=== PATIENT | male | born 1960 | race Caucasian/White ===

== ENCOUNTER 2024-02-25 11:19 | Emergency (ER) | payer MEDICARE, SELFPAY ==
[2024-02-25 11:20] VITALS: BP 180/101; PULSE 66; RESP 20; TEMP 36.6; O2SAT 96; BMI 24.4
--- NOTE | 2024-02-25 11:52 | W.ED.ABDPA2 ---
HPI - Abdominal Pain General: Chief Complaint: Abdominal Pain Stated Complaint: abd pain Time Seen by Provider: 02/25/24 11:47 Source: patient Mode of arrival: ambulatory Limitations: no limitations History of Present Illness: Patient is a nice 63-year-old male presents to ED today for evaluation of a hernia. Patient states he has had the hernia for a long time now (several years). He states normally it does not bother him much but feels like he over time has started noticing coughing and kneeling to pray causes him some discomfort. He states hernia is always reproducible. He states he has normal bowel movements and passes flatulence normally. He has not noticed any change to this. He is not running fevers. No nausea or vomiting. MD elicited complaint: other (hernia) Pertinent past history: none Onset (ago): year(s) Location: LLQ (inguinal region) and Groin Radiation: none Migration to: no migration Exacerbating factors: other (coughing/straining) Relieving factors: nothing Associated Symptoms: Reports no associated symptoms; Denies diarrhea, dysuria, fever(s), nausea and vomiting Review of Systems Const: Denies: fever(s) Card: Denies: chest pain Resp: Denies: dyspnea GI: Denies: abdominal pain, nausea, vomiting or diarrhea : Denies: flank pain, difficulty urinating, dysuria, urinary frequency, urinary urgency or urinary hesitancy Skin/Breast: Denies: rash or erythema Physical Exam Const: COMMON NORMALS: no acute distress, average body habitus, patient oriented x3, no limitations, healthy appearing, alert and well nourished OTHER: Hypertensive upon arrival. Systolic charted 180. During my examination blood pressure is already down to 150s systolic. Resp: COMMON NORMALS: normal respiratory effort and clear to auscultation bilaterally AUSCULTATION: clear to auscultation bilaterally Cardio: COMMON NORMALS: regular rate and regular rhythm RATE: regular rate RHYTHM: regular rhythm GI: COMMON NORMALS: Normal to inspection, nondistended, normoactive bowel sounds present, Soft to palpation and No hepatosplenomegaly present INSPECTION: Yes normal to inspection AUSCULTATION: Yes normoactive bowel sounds PALPATION: Yes Soft to palpation, No Guarding due to palpation present (GI), No Rigid due to palpation and Yes No hepatosplenomegaly present OTHER: L inguinal hernia present only with Valsalva-this is easily reducible Neuro: COMMON NORMALS: patient oriented x3 SENSORIUM/ORIENTATION: Yes alert Course Vital Signs: Vital signs: Vital Signs Temperature 97.8 F 02/25/24 11:20 Pulse Rate 66 02/25/24 11:20 Respiratory Rate 20 H 02/25/24 11:20 Blood Pressure 180/101 02/25/24 11:20 Pulse Oximetry 96 02/25/24 11:20 Oxygen Delivery Me thod Room Air 02/25/24 11:20 MDM - Abdominal Pain Medical Decision Making Patient here with a chronic left inguinal hernia. It is only present with Valsalva and easily reducible here. He is not complaining of pain. He is having normal bowel movements. Nothing to suggest obstruction, incarceration, or strangulation. He will be provided general surgery referral for discussion regarding elective repair. Return ED precautions given. Differential Diagnosis Likely abdominal pain and small bowel obstruction Medical Records I reviewed the patient's medical records. No radiology studies performed this visit Discharge Plan Discharge Patient Disposition: Home Clinical Impression: Left inguinal hernia Condition: Stable Discharge Orders: Discharge ED (Routine); Ordered 02/25/24 Ordered By: Sandra Swann Patient Instructions: Inguinal Hernia (ED) Activity Restrictions/Additional Instructions: As we discussed we need to see you back in the emergency department if your hernia gets stuck and is not able to be reduced or if you begin having severe constant pain, trouble having a bowel movement or passing gas, fevers, redness to the skin of your abdomen overlying the hernia site, or any other concerns you may have. Otherwise I would like you to follow-up with general surgery for discussion about an elective hernia repair. Case management should reach out to you this week to help set you up with this follow-up appointment. Stand Alone Forms: Work/School Release Coding Level of Care Code ED Associate Account Director for Andrew Loomis
[2024-02-25 12:16] VITALS: PULSE 59; O2SAT 96
--- NOTE | 2024-02-27 07:26 | DCPLANNER ---
messaged gen surg for er f/u
== END 2024-02-25 12:18 | disposition home or self-care (01) ==
PROVIDERS: Emergency Provider Physician Assistant
DX: K40.90 Unilateral inguinal hernia, without obstruction or gangrene, not specified as recurrent (principal)
CPT/HCPCS: 99281

== ENCOUNTER → 2024-03-13 10:41 | Outpatient (BNVA) | payer MEDICARE, SELFPAY | PROVIDERS: Referring Provider Physician Assistant; Visit Provider Surgery | DX: K40.90 Unilateral inguinal hernia, without obstruction or gangrene, not specified as recurrent (principal) | CPT/HCPCS: 99204 ==

== ENCOUNTER 2024-03-23 08:06 | Day surgery (SDC) | payer MEDICARE, SELFPAY ==
[2024-03-23] VITALS (11 sets, daily range): BP systolic 156–190; BP diastolic 47–112; PULSE 59–89; RESP 15–23; TEMP 36.4–36.7; O2SAT 90–96; BMI 24.8
--- NOTE | 2024-03-23 09:04 | P.ANESASSM_ITS ---
Pre-Anesthetic Assessment Height/Weight: Height 1.8 m Weight 80.931 kg O2 Del Method Room Air 03/23/24 08:57 Operation Date: 03/23/24 10:05 Proposed Procedures p Laparoscopic Inguinal Hernia Repair w/Mesh - POSSIBLE OPEN L 60139, K40.90(Not Applicable) - Gio Alex MD Last intake: Intake Last Liquid Date 03/22/24 Last Liquid Time 23:55 Last Solid Date 03/22/24 Last Solid Time 23:55 Social No alcohol and No tobacco Exam alert, oriented x 3, clear to auscultation bilaterally and regular rate & rhythm Airway Submandibular: within normal limits Cervical ROM: within normal limits Mallampati: Class I Pulmonary None reported CV/HEM Hypertension Hepatic None reported GI None reported Metabolic None reported Musc/skel None reported Anesthetic Plan ASA status: 2 Anesthesia: General Medications/Allergies Home Medications Medication Instructions Recorded Confirmed Last Taken Type No Known Home Medications 03/13/24 03/20/24 Unknown History Allergies Allergy/AdvReac Type Severity Reaction Status Date / Time diphenhydramine Allergy ADR-Agitate Verified 03/13/24 10:42 [From Benadryl Allergy] d PENDING SALE TO [facility] Anesthesia Social History (Updated 03/20/24 @ 10:33 by Rosemary Brito RN) Smoking and tobacco/nicotine status: former use of tobacco/nicotine Substance/Drug Use: current Substance/Drug use frequency: daily Substance/Drug use type: Marijuana Data Anesthesia Cardiac Studies: No Data to Display
[2024-03-23] MEDS: sodium chloride 0.9% 1,000 ML 30 ML IV (09:24)
--- NOTE | 2024-03-23 10:00 | P.HPUD_ITS ---
Surgery/Procedure H&P Update DATE OF PROCEDURE: March 23, 2024 DATE H&P PERFORMED: 03/13/24 H&P UPDATE INFORMATION: I have reviewed H&P completed within last 30 days, I have examined patient prior to procedure, No changes to prior documentation and [place] [facility] [place] indicated PLANNED PROCEDURE: Operation Date: 03/23/24 10:05 Proposed Procedures p Laparoscopic Inguinal Hernia Repair w/Mesh - POSSIBLE OPEN L 95888, K40.90(Not Applicable) - Gio Alex MD
[2024-03-23] MEDS: ceFAZolin 2,000 mg SDV 2000 MG IVP (10:55)
[2024-03-23] MEDS: BUPivacaine 0.25% INJ 30 mL INJECTION (11:09)
[2024-03-23] MEDS: lidocaine-epi 1% PF 1:200,000 30 mL SDV INJECTION (11:09)
--- NOTE | 2024-03-23 12:06 | PM.OP ---
Operative Report Date of procedure: March 23, 2024 Pre-op diagnosis: Left inguinal hernia Post-op diagnosis: Left inguinal hernia with a direct and indirect component. Post-op findings: There was a very large direct left inguinal hernia, a small indirect hernia and a small lipoma of the cord Procedure done: Laparoscopic repair of left inguinal hernia Implants: Large 3D max left-sided mesh Specimens removed/disposition: None Surgeon: Gio Alex MD Retail Visual Merchandiser: FARIDA OR STaff Estimated blood loss: 5 Complications: none Brief History: This is a 63-year-old male with a left inguinal hernia who presented to my clinic for evaluation for repair. After discussion of all risk and benefits as documented my preop note we decided to proceed. Procedure: Patient was brought into the OR, he was placed in a supine position. General anesthesia was given. The abdomen was prepped and draped in the usual sterile fashion. Timeout was conducted. A 1.5 cm infraumbilical incision was made, the incision was deepened until the anterior rectus sheath of the right side was identified, the rectus sheath was then opened with electrocautery, the rectus muscle was retracted laterally giving access to the retrorectus space, an S shaped retractor was placed in the space and a Spacemaker was advanced carefully to the level of the pubic bone. Under direct visualization the balloon was inflated, at this moment a large left direct defect was apparent. The Spacemaker was removed and replaced with a that 12 mm balloon trocar, insufflation was started with a flow 10 and a pressure of 10. Additional 5 mm trocars were placed in the suprapubic and infraumbilical locations on direct visualization. I then proceeded to develop the preperitoneal space, a large direct inguinal hernia was noted and contained preperitoneal fat and was slightly pulling the bladder up. I was able to reduce the hernia and all the preperitoneal fat, I was able to clear the fat from the pubic tubercle and dissected 2 cm below the level of the pubis to allow for appropriate mesh placement. I then proceeded to do my lateral dissection of the space of Borg[place]. Finally I put my attention to the cord structures a very small sac was noted and was reduced, a small lipoma of the cord was noted and was reduced. Cord structures were preserved during dissection. Once a critical view of the myopectineal orifice was achieved I proceeded to place a large left-sided 3D max mesh in the space. The mesh was fixed with 1 tacked to the Efren's ligament and was noted to overlaid the femoral direct and indirect spaces. The space was desufflated under direct visualization and reinsufflated to ensure adequate Ms. position. Finally I desufflated the space again under direct visualization, all trocars were removed. The anterior rectus sheath was closed with #0 Vicryl. The wounds were then closed in layers with #3-0 Vicryl for the subcutaneous tissue and #4 Monocryl for the skin at the end of the procedure all counts were correct, the patient tolerated well the procedure and was transferred to the PACU in stable condition.
--- NOTE | 2024-03-23 12:37 | PC.NURSE ---
1222 - pt restless and refusing to leave arm still for blood pressure cuff to circulate for bp monitoring at 1222 and [id number] - 02 sats within normal limits on room air
--- NOTE | 2024-03-23 13:17 | ANE.PACU2 ---
Inpatient post-anesthesia follow up: Airway intact: Yes Vital signs: Temperature 97.9 F Pulse Rate 80 Respiratory Rate 18 Blood Pressure 184/47 Pulse Oximetry 93 Oxygen Delivery Me thod Room Air Oxygen Flow Rate Fraction of Inspir ed Oxygen Hydration adequate: Yes Nausea and vomiting: No Pain level: controlled Mental status: Baseline Additional Comments: no apparent anesthetic complications noted
== END 2024-03-23 13:40 | disposition home or self-care (01) ==
PROVIDERS: Visit Provider Surgery
PROC: (CPT 49650; principal; 2024-03-23 09:55)
DX: K40.90 Unilateral inguinal hernia, without obstruction or gangrene, not specified as recurrent (principal); D17.6 Benign lipomatous neoplasm of spermatic cord; I10 Essential (primary) hypertension; Z87.891 Personal history of nicotine dependence
CPT/HCPCS: 49650; 51702; C1781; J0131; J0330; J0690; J1100; J1170; J2405; J2704; J2710; J3010; J3490; J7030

== ENCOUNTER → 2024-04-22 10:47 | Outpatient (BNVA) | payer MEDICARE, SELFPAY | PROVIDERS: Visit Provider Surgery | DX: Z87.19 Personal history of other diseases of the digestive system (principal); Z98.890 Other specified postprocedural states | CPT/HCPCS: 99024 ==

== ENCOUNTER 2024-12-31 19:32 | Observation (INO) | payer MEDICARE, SELFPAY ==
[2024-12-31] VITALS (7 sets, daily range): BP systolic 142–183; BP diastolic 85–108; PULSE 73–104; RESP 18–93; TEMP 36.4–37; O2SAT 93–94; BMI 24.4
--- NOTE | 2024-12-31 19:45 | XRR_ITS ---
PROCEDURE INFORMATION: Exam: XR Chest Exam date and time: 12/31/2024 7:53 PM Age: 64 years old Clinical indication: Chest pressure and chest wall pain; Additional info: Chest pain TECHNIQUE: Imaging protocol: Radiologic exam of the chest. Views: 1 view. COMPARISON: No relevant prior studies available. FINDINGS: Lungs: Unremarkable. No consolidation. Pleural spaces: Unremarkable. No pleural effusion. No pneumothorax. Heart/Mediastinum: Unremarkable. No cardiomegaly. Bones/joints: There are age indeterminate left-sided rib fractures. If there are no comparisons then consider additional imaging to assess acuity. XR/XR chest 1V portable [id number] IMPRESSION: As above
--- NOTE | 2024-12-31 19:46 | ECG_ITS ---
Quality Practice Test Date: 2024-12-31 Pat Name: Tanmay Bishop Department: Room: Gender: Male Compliance Tester: : 1960 Requested By: Sydnee Garay Order Number: [id number] Fung MD: Juarez Rivas M.D. Measurements Intervals [place] Rate: 98 P: 39 GA: 187 QRS: 23 QRSD: 103 T: 103 QT: 342 QTc: 438 Interpretive Statements SINUS RHYTHM ST DEVIATION AND MODERATE T-WAVE ABNORMALITY, CONSIDER LATERAL ISCHEMIA [-0.1+ mV T-WAVE IN I/aVL/V5/V6] No previous ECG available for comparison Electronically Signed On 01-01-2025 10:35:30 CDT by Juarez Rivas M.D. [email or web address]
--- NOTE | 2024-12-31 20:20 | ED_ITS ---
HPI - SOB/Dyspnea 2 General: Chief Complaint: Shortness of Breath/Dyspnea Stated Complaint: Heavyness on chest,SOB Time Seen by Provider: 12/31/24 19:37 History of Present Illness: HPI Narrative: 64-year-old man with a history of hypert ension and marijuana use who presents to the emergency room with chest pain. He says he was jogging over the family's house when he developed a pressure on his chest. He says it felt like somebody was sitting on his chest. It is resolved with rest. He has no known cardiac illnesses. No lower extremity swelling. No altered mental status. No fevers. No cough. Related Data Previous Rx's ?Medication ?Instructions ?Recorded oxycodone 5 mg tablet 5 mg PO Q8H PRN pain #20 tab s 03/23/24 Allergies Allergy/AdvReac Type Severity Reaction Status Date / Time diphenhydramine (From Allergy ADR-Agitate Verified 04/22/24 10:50 Benadryl Allergy) d Review of Systems 2 Narrative: Constitutional symptoms: Negative except as documented in HPI. Skin symptoms: Negative except as documented in HPI. Eye symptoms: Negative except as documented in HPI. ENMT symptoms: Negative except as documented in HPI. Respiratory symptoms: Negative except as documented in HPI. Cardiovascular symptoms: Negative except as documented in HPI. Gastrointestinal symptoms: Negative except as documented in HPI. Genitourinary symptoms: Negative except as documented in HPI. Musculoskeletal symptoms: Negative except as documented in HPI. Neurologic symptoms: Negative except as documented in HPI. Psychiatric symptoms: Negative except as documented in HPI. Endocrine symptoms: Negative except as documented in HPI. PFSH ED 2 PFSH: Medical History (Updated 12/31/24 @ 20:58 by Christopher Bernardo MD) Tobacco use disorder Surgical History (Updated 12/31/24 @ 20:42 by Christopher Bernardo MD) History of hernia repair Social History Smoking and tobacco/nicotine status: current every day tobacco/nicotine user Substance/Drug Use: current Substance/Drug use frequency: daily Physical Exam 2 Narrative: EXAM NARRATIVE: General: Alert, no acute distress. Skin: Warm, dry. Head: Normocephalic, atraumatic. Neck: Supple, trachea midline. Eye: Extraocular movements are intact. Ears, nose, mouth and throat: mucosa moist. Cardiovascular: Regular, Normal peripheral perfusion. Respiratory: Lungs are clear to auscultation, respirations are non-labored, breath sounds are equal, Symmetrical chest wall expansion. Gastrointestinal: Soft, Nontender, Non distended Musculoskeletal: Normal ROM, no deformity. Neurological: Alert and oriented, No focal neurological deficit observed. Psychiatric: Cooperative, appropriate mood & affect. Course 2 Vital Signs: Vital signs: Vital Signs Temperature 98 F 12/31/24 19:42 Pulse Rate 88 12/31/24 20:15 Respiratory Rate 18 12/31/24 20:15 Blood Pressure 142/97 12/31/24 20:15 Pulse Oximetry 93 12/31/24 20:15 MDM - SOB/Dyspnea Medical Decision Making Differential diagnosis for patient with chest pain includes but is not limited to and based on the above HPI, review of systems and physical exam: Pneumonia. unstable angina. angina. Acute coronary syndrome / MS. Pulmonary embolism. Costochondritis / musculoskeletal. Pleurisy. Pericarditis. Esophageal spasm. Pancreatis. Cholecystitis. Orders placed to evaluate differential diagnosis based on the above differential, HPI and physical exam EKG: Time 1942. Rate 98. Normal sinus rhythm, some ST depression in 1 and aVL. Some abnormalities/mild elevation in 3 V1, no ectopy, normal MS & QRS intervals, This was reviewed and interpreted by myself the ER physician at 1947 Consultation: Had some concern with his abnormal EKG so I discussed this with Dr. Easley who reviewed it. He agrees it is not a STEMI at this time but he does feel like given the patient's story and EKG changes that Lovenox and n.p.o. status for stress test in the morning are warranted. Trend troponins as usual. Chest x-ray: No acute process. No infiltrate. No pneumothorax. This was reviewed and interpreted by myself the emergency room physician. I also reviewed the radiology report. Lab Review: Laboratory results were reviewed and interpreted by myself the emergency room physician. No leukocytosis. No anemia. Initial troponin is elevated at 40. No renal failure. I reviewed the patient's medical record. Reexamination: Patient remained stable. No increased work of breathing. No altered mental status. No focal motor deficits. Consultation: I spoke with Dr. Bernardo who is on-call for the hospitalist service who agrees to admission. Lab Data 12/31/24 20:18 12/31/24 20:18 Labs/Radiology: Radiology Impressions Chest X-Ray 12/31/24 19:45 IMPRESSION: As above Laboratory Results WBC 7.84 10^3/uL (3.29-11.43) 12/31/24 20:18 RBC 4.68 10^6/uL (3.85-5.65) 12/31/24 20:18 Hgb 14.50 g/dL (11.27-16.99) 12/31/24 20:18 Hct 43.4 % (37-53) 12/31/24 20:18 MCV 92.7 fl (82-101) 12/31/24 20:18 MCH 31.0 pg (27-33) 12/31/24 20:18 MCHC 33.4 g/dL (30-55) 12/31/24 20:18 RDW 12.6 % (12.1-15.1) 12/31/24 20:18 Plt Count 215 10^3/cmm (157-399) 12/31/24 20:18 MPV 8.5 fL (7.4-10.4) 12/31/24 20:18 Neut % (Auto) 72.5 % 12/31/24 20:18 Lymph % (Auto) 16.8 % 12/31/24 20:18 [place] % (Auto) 7.4 % 12/31/24 20:18 Eos % (Auto) 2.3 % 12/31/24 20:18 Baso % (Auto) 0.6 % 12/31/24 20:18 Neut # (Auto) 5.68 10^3/uL (1.8-7.7) 12/31/24 20:18 Lymph # (Auto) 1.3 10^3/uL (0.8-4.8) 12/31/24 20:18 [place] # (Auto) 0.6 10^3/uL (0.2-0.9) 12/31/24 20:18 Eos # (Auto) 0.2 10^3/uL (0.0-0.8) 12/31/24 20:18 Baso # (Auto) 0.1 10^3/uL (0.0-0.1) 12/31/24 20:18 Nucleated RBC % (auto) 0 % 12/31/24 20:18 Nucleated RBCs # 0.0 /100WBC 12/31/24 20:18 Sodium 138 mmol/L (136-145) 12/31/24 20:18 Potassium 3.8 mmol/L (3.5-5.1) 12/31/24 20:18 Chloride 101 mmol/L (98-107) 12/31/24 20:18 Carbon Dioxide 25 mmol/L (22-29) 12/31/24 20:18 Anion Gap 15.8 (5-19) 12/31/24 20:18 BUN 15 mg/dL (8-23) 12/31/24 20:18 Creatinine 0.7 mg/dL (0.7-1.2) 12/31/24 20:18 GFR Calculation 112.8 mL/min (90-130) 12/31/24 20:18 Glucose 180 mg/dL (65-115) H 12/31/24 20:18 Calculated Osmolality 291 mOsm/kg (285-295) 12/31/24 20:18 Calcium 9.1 mg/dL (8.5-10.5) 12/31/24 20:18 Total Bilirubin 0.2 mg/dL (0.15-1.2) 12/31/24 20:18 AST 42 U/L (0-40) H 12/31/24 20:18 ALT 30 U/L (0-41) 12/31/24 20:18 Alkaline Phosphatase 59 U/L (40-130) 12/31/24 20:18 Troponin T Baseline 40 ng/L (0-15) H 12/31/24 20:18 NT-Pro-B Natriuret Pep 1024 pg/mL (0-125) H 12/31/24 20:18 Total Protein 6.6 g/dL (6.6-8.7) 12/31/24 20:18 Albumin 4.3 g/dL (3.5-5.2) 12/31/24 20:18 Globulin 2.3 g/dL (1.3-4.6) 12/31/24 20:18 All radiology interpretation(s) finalized by discharge Discharge Plan Discharge Patient Disposition: Placed in Observation Clinical Impression: Chest pain, Elevated troponin Coding Level of Care Code ED Surveillance Observer for Andrew Loomis
[2024-12-31 20:27] LABS: Basophils # 0.1 10^3/uL (0.0-0.1); Basophils % 0.6 %; Eosinophils # 0.2 10^3/uL (0.0-0.8); Eosinophils % 2.3 %; Hematocrit 43.4 % (37-53); Lymphocytes # 1.3 10^3/uL (0.8-4.8); Lymphocytes % 16.8 %; Mean Corpuscular HGB Conc 33.4 g/dL (30-55); Mean Corpuscular Volume 92.7 fl (82-101); Mean Platelet Volume 8.5 fL (7.4-10.4); Monocytes # 0.6 10^3/uL (0.2-0.9); Monocytes % 7.4 %; Neutrophils # 5.68 10^3/uL (1.8-7.7); Neutrophils % 72.5 %; Nucleated Red Blood Cells % 0 %; Platelet Count 215 10^3/cmm (157-399); Red Blood Count 4.68 10^6/uL (3.85-5.65); Red Cell Distribution Width 12.6 % (12.1-15.1); White Blood Count 7.84 10^3/uL (3.29-11.43)
[2024-12-31] MEDS: aspirin 81 mg Chew Tablet 324 MG PO (20:37)
--- NOTE | 2024-12-31 20:41 | PM.HP ---
Providers/Chief Complaint Chief Complaint: Heavyness on chest,SOB History of Present Illness Tanmay Bishop is a 64 year old male with a past medical history significant for hypertension not on pharmacological treatment, nicotine use disorder, cannabis use disorder, and hernia status post repair who presents to the emergency department with substernal chest pressure. Patient reports onset prior to arrival. He reports his sensation as a substernal chest pressure, severe 10 out of 10 lasting 15 minutes. Reports associated nausea and vomiting during the episode. Reports exertion made the symptoms return. Rest improves his symptoms. He denies known history of heart disease. Denies family history of known heart disease. He has a history of hypertension however does not take blood pressure medications. In the emergency department, baseline troponin was found to be 40 ng/L. EKG showed depression in lateral leads. ED provider reports consulted cardiology on-call recommending aspirin/Lovenox and cardiac stress testing tomorrow. Review of Systems Narrative: A complete review of systems was obtained and is negative except as stated in HPI. Medications/Allergies Home Medications ?Medication ?Instructions ?Recorded ?Confirmed ?Last Taken ?Type oxycodone 5 mg tablet 5 mg PO Q8H PRN pain #20 tabs 03/23/24 04/22/24 Unknown Rx Allergies Allergy/AdvReac Type Severity Reaction Status Date / Time diphenhydramine (From Allergy ADR-Agitate Verified 04/22/24 10:50 Benadryl Allergy) d PFSH Acute PFSH: Medical History (Updated 12/31/24 @ 20:58 by Christopher Bernardo MD) Tobacco use disorder Surgical History (Updated 12/31/24 @ 20:42 by Christopher Bernardo MD) History of hernia repair Social History Smoking and tobacco/nicotine status: current every day tobacco/nicotine user Substance/Drug Use: current Substance/Drug use frequency: daily Vitals/I&O/Wt Last Vital Signs Temp 98 F 12/31/24 19:42 Pulse 88 12/31/24 20:15 Resp 18 12/31/24 20:15 BP 142/97 12/31/24 20:15 Pulse Ox 93 12/31/24 20:15 12/31/24 12/31/24 12/31/24 06:59 14:59 22:59 Intake Total 0 / 0 Balance 0 / 0 Weight last 48 hrs Weight 79.379 kg Physical Exam Narrative: General: Patient is awake and alert. Head: Normocephalic. Atraumatic. EOM intact. Neck: No JVD. Cardiovascular: RRR. No gallops. No murmurs. No peripheral edema. Lungs: Clear to auscultation, no use of accessory muscles, no crackles or wheezes. Skin: No jaundice. No rashes. Abdomen: Normal bowel sounds, abdomen soft and nontender. Genito Urinary: Genital exam not performed since complaints not related. Rectal: Rectal exam not performed since no symptoms indicated blood loss. Extremities: No cyanosis or clubbing. Musculoskeletal: No swollen or erythematous joints. Neurological: Moves all 4 extremities. No myoclonus. Data 12/31/24 20:18 12/31/24 20:18 A&P Assessment and plan (1) Chest pain: (2) Elevated troponin: (3) Tobacco use disorder: (4) Hypertensive urgency: (5) Cannabis use disorder: (6) Hypertension: (7) Abnormal EKG: (8) Nausea & vomiting: Plan Chest pressure Elevated troponin - Presentation suspicious for NSTEMI - EKG with lateral lead depressions - Trend troponins - Therapeutic Lovenox - Continue aspirin - Start BB - NTG PRN; morphine for refractory pain - Check lipids and A1c - Telemetry monitoring - Echocardiogram - N.p.o. after midnight - Tentative stress test, may need cardiac cath pending troponin and clinical course Hypertensive urgency Hypertension no on pharmacological treatment [employer] - Start BB as above - Ensure analgesia - PRN hydralazine Nicotine use disorder with chewing tobacco Cannabis use disorder - Would benefit from cessation DVT ppx: Lovenox Code: Full PDMP PDMP Reviewed: Not Reviewed Attestations Medical Necessity Statement*: Patient presents with symptoms concerning for unstable angina with expected hospitalization not to cross two midnights for further work up and treatment. Coding Level of Care Code Acute Code for [facility] Fwd Diagnoses Chest pain R07.9 Elevated troponin R79.89 Tobacco use disorder F17.200 Hypertensive urgency I16.0 Cannabis use disorder F12.90 Hypertension I10 Abnormal EKG R94.31 Nausea & vomiting R11.2
[2024-12-31 20:48] LABS: Troponin(5th) Baseline 40 ng/L (0-15)
[2024-12-31 20:57] LABS: Alanine Aminotransferase 30 U/L (0-41); Albumin Level 4.3 g/dL (3.5-5.2); Alkaline Phosphatase 59 U/L (40-130); Anion Gap 15.8 (5-19); Aspartate Amino Transferase 42 U/L (0-40); Blood Urea Nitrogen 15 mg/dL (8-23); Calcium 9.1 mg/dL (8.5-10.5); Carbon Dioxide 25 mmol/L (22-29); Chloride 101 mmol/L (98-107); Creatinine Clr Calc Pharmacy 98.8357; Globulin 2.3 g/dL (1.3-4.6); Glomerular Filtration Rate 112.8 mL/min (90-130); Glucose 180 mg/dL (65-115); NT Pro B Type Natriuretic Pept 1024 pg/mL (0-125); Osmolality Calculated 291 mOsm/kg (285-295); Potassium 3.8 mmol/L (3.5-5.1); Sodium 138 mmol/L (136-145); Total Bilirubin 0.2 mg/dL (0.15-1.2); Total Protein 6.6 g/dL (6.6-8.7)
--- NOTE | 2024-12-31 21:05 | USCV_ITS ---
Tanmay Bishop Age: 64 Gender: M : 1960 Exam Date: 12/31/2024 21:21 Ordering Phys: Christopher Bernarod MD Technologist: PANKAJ [place] [facility] [place] Indication: unstable angina, nicotine addiction, cannabis, HTN, CP BP: 183 / 106 HR: 76 Rhythm: Sinus Technical Quality: Adequate MEASUREMENTS (Male / Female) Normal Values 2D ECHO LV Diastolic Diameter PLAX 5.2 cm 4.2 - 5.9 / 3.9 - 5.3 cm IVS Diastolic Thickness 1.9 cm 0.6 - 1.0 / 0.6 - 0.9 cm IVS Systolic Thickness 2.4 cm LVPW Diastolic Thickness 1.4 cm 0.6 - 1.0 / 0.6 - 0.9 cm LVPW Systolic Thickness 1.9 cm LVOT Diameter 2.0 cm LV Ejection Fraction 2D Teich 43.5 % LV Ejection Fraction MOD 4C 52.1 % LV Ejection Fraction MOD 2C 36.7 % LV Ejection Fraction 2C AL 36.6 % LA Diameter 3.8 cm Aorta at Sinotubular Diameter 2.6 cm IVC Diameter 1.2 cm M-MODE LA Ao Ratio MM 1.0 AV Cusp Separation MM 1.8 cm DOPPLER AV Peak Velocity 108.0 cm/s LVOT Peak Velocity 108.0 cm/s AV Area Cont Eq vti 2.4 cm squared AV Area Cont Eq pk 3.0 cm squared MV Peak Velocity 92.0 cm/s MV Area PHT 6.8 cm squared Mitral E to A Ratio 0.6 TV Peak E Velocity 43.0 cm/s PV Peak Velocity 98.0 cm/s FINDINGS Left Ventricle Diffuse hypokinesis left ventricular ejection fraction of 40% (visual). Mild concentric left ventricular hypertrophy. Mildly dilated LV cavity.Grade I/IV diastolic dysfunction (abnormal relaxation filling pattern), normal to mildly elevated filling pressures. Right Ventricle Normal right ventricular size and systolic function. Right Atrium Normal right atrial size. Left Atrium Upper limit of normal size Mitral Valve Trace mitral valve regurgitation. Aortic Valve Thickened aortic valve. Tricuspid Valve No gross abnormalities noted Pulmonic Valve Trace pulmonary valve regurgitation. Pericardium No pericardial effusion. Aorta Normal aortic annulus size. IVC Normal inferior vena cava. CONCLUSIONS Diffuse hypokinesis left ventricular ejection fraction of 40% (visual). Mild concentric left ventricular hypertrophy. Mildly dilated LV cavity.Grade I/IV diastolic dysfunction (abnormal relaxation filling pattern), normal to mildly elevated filling pressures. Left atrium, upper limit of normal size Trace mitral valve regurgitation. Thickened aortic valve. There is no pericardial effusion. There are no intracardiac masses. No similar previous studies are available for comparison Dr Juarez Rivas MD FAC (Electronically Signed) Final Date: 31 December 2024 22:08 S
[2024-12-31] MEDS: atorvastatin 40 mg Tablet PO (21:37)
[2024-12-31] MEDS: enoxaparin 80 mg/0.8 mL Syringe SUBCUT (22:33)
[2024-12-31] MEDS: metoprolol tartrate 25 mg Tablet PO (22:33)
[2024-12-31 23:29] LABS: Troponin 5 2HR 89.31 ng/L (0-15)
[2024-12-31 23:41] LABS: Troponin 5 2HR Delta 49.31 ABS# (0-10)
[2025-01-01] VITALS (7 sets, daily range): BP systolic 135–172; BP diastolic 76–109; PULSE 55–84; RESP 12–19; TEMP 36.3–36.9; O2SAT 94–96
[2025-01-01 00:22] LABS: Bilirubin Urine Negative (Negative); Blood Urine Negative (Negative); Glucose Urine UA Negative (Normal); Ketones Urine Negative (Negative); Leukocyte Esterase Urine Negative (Negative); Nitrate Urine Negative (Negative); Protein Urine Negative (Negative); Specific Gravity, Urine 1.017 (1.005-1.030); Urine Appearance Clear (CLEAR); Urine Color Yellow (Yellow); Urobilinogen Urine 0.2 mg/dL (Negative)
[2025-01-01 00:25] LABS: Add Urine Microscopic? YES; Bacteria Urine None Seen /hpf; Hyaline Casts Urine 0-4 /lpf; RBC Urine 0-2 /hpf (0-2); Squamous Epithelial Cell Urine 0-5 /hpf (0-5); WBC Urine 0-5 /hpf (0-5)
[2025-01-01] MEDS: clopidogrel 300 mg Tablet PO (00:58)
[2025-01-01 03:41] LABS: Troponin 5 6HR 82.48 ng/L (0-15)
[2025-01-01 03:42] LABS: Chol HDL Ratio 4.15 mg/dL (1.0-5.00); Cholesterol 199 mg/dL (0-200); HDL Cholesterol 48 mg/dL (60-100); LDL Cholesterol Calculated 128 mg/dL (50-129); LDL HDL Ratio 2.67 RATIO (0.00-3.22); Triglycerides 117 mg/dL (0-150)
[2025-01-01 03:43] LABS: Alanine Aminotransferase 27 U/L (0-41); Albumin Level 4.1 g/dL (3.5-5.2); Alkaline Phosphatase 62 U/L (40-130); Aspartate Amino Transferase 43 U/L (0-40); Blood Urea Nitrogen 13 mg/dL (8-23); Calcium 8.9 mg/dL (8.5-10.5); Carbon Dioxide 24 mmol/L (22-29); Chloride 103 mmol/L (98-107); Creatinine Clr Calc Pharmacy 104.3133; Globulin 2.7 g/dL (1.3-4.6); Glomerular Filtration Rate 134.8 mL/min (90-130); Glucose 113 mg/dL (65-115); Osmolality Calculated 287 mOsm/kg (285-295); Sodium 138 mmol/L (136-145); Total Bilirubin 0.3 mg/dL (0.15-1.2); Total Protein 6.8 g/dL (6.6-8.7)
[2025-01-01 03:44] LABS: Troponin 5 6HR Delta 42.48 ng/L (0-12)
[2025-01-01 03:51] LABS: Estmated Average Glucose 128; Hemoglobin A1C 6.1 % (4.0-6.0)
--- NOTE | 2025-01-01 03:52 | ECG_ITS ---
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 Measurements Intervals [place] Rate: 62 P: 61 IL: 190 QRS: 56 QRSD: 104 T: 174 QT: 423 QTc: 432 Interpretive Statements SINUS RHYTHM ST DEVIATION AND MODERATE T-WAVE ABNORMALITY, CONSIDER LATERAL ISCHEMIA [-0.1+ mV T-WAVE IN I/aVL/V5/V6] Compared to ECG 12/31/2024 19:43:59 No significant changes Electronically Signed On 01-01-2025 10:40:02 CDT by Juarez Rivas M.D. [email or web address]
--- NOTE | 2025-01-01 07:18 | PC.NURSE ---
Informed patient of stress test to be cancelled with possible LHC to replace. Patient is very nervous and concerned. MD needs to speak with patient prior.
[2025-01-01] MEDS: aspirin 81 mg EC Tablet PO (08:02)
[2025-01-01] MEDS: metoprolol tartrate 25 mg Tablet PO ×2 (08:02→20:21)
--- NOTE | 2025-01-01 09:30 | PC.NURSE ---
10am dose of Lovenox not given due to patient going to process laboratory specialist at 1230 per .
--- NOTE | 2025-01-01 11:09 | P.CONIM_ITS ---
<Statement entered by Ann Easley MD - 01/01/25 18:33> Patient was evaluated and cared for in conjunction with an advanced practice practitioner. I personally examined the patient and reviewed the chart and all pertinent data including imaging, telemetry, and laboratory results. I discussed the patient in detail with the advanced practice practitioner. Please see their note for complete H&P testing result and agreed upon plan of care for the patient. 64-year-old male past medical history significant for continuous tobacco abuse presented with chest pain ruled in for non-ST elevation PR. GENERAL: Patient is alert, awake and oriented x3. HEART: Regular S1 and S2. No murmur, rub or gallop. LUNGS: Clear to auscultate bilaterally. CENTRAL NERVOUS SYSTEM: Grossly nonfocal. EXTREMITIES: Lower extremities with out edema bilaterally. Assessment and plan Non-ST elevation PR Hypertension Continues tobacco abuse Hyperlipidemia I have detailed discussion with the patient initially he was reluctant but we suggested proceeding with left heart cath given his history risk factor for acute coronary syndrome and escalating cardiac markers. Finally he decided to proceed with it. Continue aspirin and statin beta-ama and anticoagulation, echocardiogram will be obtained and we will proceed with left heart cath today. Providers/Reason For Consult 2 Consulting Physician/Specialty*: Ann Easley MD Reason for Consult*: chest pain, NSTEMI Requesting Physician: Dr. Bernardo Attending Physician: Jessica Resendiz MD Primary Care Provider: Dr. Bernardo History of Present Illness History of Present Illness Tanmay Bishop is a 64 year old male with a past medical history for hypertension, hypercholesterolemia, prediabetes, nicotine use disorder presented to the ER with substernal chest pressure. He states that he was jogging and developed a severe pressure in his chest at the center. It resolved with rest. Denies any previous cardiac issues. Denies any shortness of breath orthopnea at this time. No signs of heart failure noted. Creatinine was normal at 0.6. Tropes were elevated at 40-89-82 with delta positive. Blood pressure slightly elevated 154/94. EKG showed T wave inversions in the lateral leads. Labs are stable. He is not requiring any oxygen. Denies any chest pain at this time. Review of Systems 2 Narrative: Consitutional: denies fever, chills, body aches, or changes in appetite, denies abnormal weight loss Eyes: Denies changes in vision Card:reports chest pain on exertion relieved with rest, denies palpitations, irregular heart rhythm, edema, syncope, shortness of breath, orthopnea, leg pain with exertion Resp: Denies shortness of breath Musc: Denies extremity pain, denies limited range of motion or recent injury Skin: Denies rash, lesions, or wounds, denies changes to skin color Neuro: Denies nubmness in extremities, h/a, s/s of stroke Medications/Allergies Home Medications ?Medication ?Instructions ?Recorded ?Confirmed ?Last Taken ?Type No Known Home Medications 01/01/2512/09 Unknown History Allergies Allergy/AdvReac Type Severity Reaction Status Date / Time diphenhydramine (From Allergy ADR-Agitate Verified 04/22/24 10:50 Benadryl Allergy) d Current Medications Generic Name Dose Route Start Last Admin Trade Name Freq PRN Reason Stop Dose Admin Aspirin 81 mg 01/01/25 09:00 01/01/25 08:02 Aspirin 81 Mg Ec Tablet PO 81 mg DAILY TERESA Administration Atorvastatin Calcium 40 mg 12/31/24 21:10 12/31/24 21:37 Atorvastatin 40 Mg Tablet PO 40 mg BEDTIME TERESA Administration Enoxaparin Sodium 80 mg 12/31/24 22:00 01/01/25 09:29 Enoxaparin 80 Mg/0.8 Ml Syringe SUBCUT Not Given Q12H TERESA Metoprolol Tartrate 25 mg 12/31/24 21:05 01/01/25 08:02 Metoprolol Tartrate 25 Mg Tablet PO 25 mg BID@0900,2100 TERESA Administration PFSH Acute 2 PFSH: Medical History (Updated 01/01/25 @ 11:15 by Sandra Hogan NP) Tobacco use disorder Surgical History (Updated 12/31/24 @ 20:42 by Christopher Bernardo MD) History of hernia repair Social History Smoking and tobacco/nicotine status: current every day tobacco/nicotine user Substance/Drug Use: current Substance/Drug use frequency: daily Vitals/I&O/Wt Last Vital Signs Temp 98.5 F 01/01/25 07:44 Pulse 57 L 01/01/25 07:44 Resp 15 01/01/25 07:44 BP 154/94 01/01/25 07:44 Pulse Ox 95 01/01/25 07:44 O2 Del Method Room Air 01/01/25 07:44 12/31/24 01/01/25 01/01/25 22:59 06:59 14:59 Intake Total 0 / 0 0 / 0 Output Total 0 / 0 Balance 0 / 0 0 / 0 Weight last 48 hrs Weight 195 lb 12.8 oz Weight 198 lb 8 oz Weight 175 lb Physical Exam 2 Narrative: General: No apparent distress, healthy appearing, well nourished HENMT: normoceophalic Muskuloskeletal: Full ROM Respiratory: Normal respiratory effort, clear to auscultation bilaterally throughout all lung wilder, no use of accessory muscles Cardio: No JVD, regular rate, regular rhythm, S1 S2 normal, no murmurs, peripheral pulses 2+ radial palpated bilaterally Extremities: Full ROM, normal, normal capillary refill, no cyanosis or edema Neuro: Alert and oriented x4, no focal motor deficits Psych: Affect normal, mental status grossly normal Skin: No rashes or lesions noted, no wounds Data 12/31/24 20:18 01/01/25 02:12 A&P Assessment and plan (1) NSTEMI (non-ST elevated myocardial infarction): (2) Chest pain: (3) Elevated troponin: (4) Tobacco use disorder: (5) Hypertensive urgency: (6) Cannabis use disorder: (7) Hypertension: Qualifiers: Hypertension type: primary hypertension Qualified Code(s): I10 - Essential (primary) hypertension (8) Abnormal EKG: Plan At this time, patient has evidence of NSTEMI most likely due to underlying coronary artery disease. We have recommended he proceed with left heart cath, possible PCI if indicated. The risk and benefits were discussed in detail with the patient by Dr. Easley. The risk of bleeding, hematoma, vascular injury, myocardial infarction, myocardial perforation, malignant cardiac arrhythmias ,CVA, renal failure and other concomitant complications were explained in detail. He agrees to proceed. We plan to take him to the grass farm laborer today around 12:30. Will keep him NPO at this time. Continue aspirin, statin, and beta ama at this time. PDMP PDMP Reviewed: Not Reviewed Consult Attestations 2 Medical Necessity Statement: Deferred to primary. Coding Level of Care Code Acute Code for g Fwd Diagnoses NSTEMI (non-ST elevated myocardial infarction) I21.4 Chest pain R07.9 Elevated troponin R79.89 Tobacco use disorder F17.200 Hypertensive urgency I16.0 Cannabis use disorder F12.90 Primary hypertension I10 Hypertension type: primary hypertension Abnormal EKG R94.31
[2025-01-01] MEDS: sodium chloride 0.9% 1,000 ML 50 ML IV (12:01)
--- NOTE | 2025-01-01 12:08 | PM.PN ---
Subjective Subjective: seen this morning no acute events overnight patient has been chest pain free Vitals/I&O/Wt Last Vital Signs Temp 98.5 F 01/01/25 07:44 Pulse 57 L 01/01/25 07:44 Resp 15 01/01/25 07:44 BP 154/94 01/01/25 07:44 Pulse Ox 95 01/01/25 07:44 O2 Del Method Room Air 01/01/25 07:44 12/31/24 01/01/25 01/01/25 22:59 06:59 14:59 Intake Total 0 / 0 0 / 0 0 / 0 Output Total 0 / 0 Balance 0 / 0 0 / 0 0 / 0 Weight last 48 hrs Weight 88.813 kg Weight 90.038 kg Weight 79.379 kg Physical Exam Narrative: General: Patient is awake and alert. Head: Normocephalic. Atraumatic. EOM intact. Cardiovascular: RRR. No gallops. No murmurs. No peripheral edema. Lungs: Clear to auscultation, no use of accessory muscles, no crackles or wheezes. Abdomen: Normal bowel sounds, abdomen soft and nontender. Extremities: No cyanosis or clubbing. Data 12/31/24 20:18 01/01/25 02:12 A&P Assessment and plan (1) Chest pain: (2) Elevated troponin: (3) Tobacco use disorder: (4) Hypertensive urgency: (5) Cannabis use disorder: (6) Hypertension: Qualifiers: Hypertension type: primary hypertension Qualified Code(s): I10 - Essential (primary) hypertension (7) Abnormal EKG: (8) Nausea & vomiting: Plan Chest pressure Elevated troponin - Presentation suspicious for NSTEMI - EKG with lateral lead depressions - Trend troponins - Therapeutic Lovenox - Continue aspirin - Start BB - NTG PRN; morphine for refractory pain - Check lipids and A1c - Telemetry monitoring - Echocardiogram - N.p.o. 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 Diagnoses Chest pain R07.9 Elevated troponin R79.89 Tobacco use disorder F17.200 Hypertensive urgency I16.0 Cannabis use disorder F12.90 Primary hypertension I10 Hypertension type: primary hypertension Abnormal EKG R94.31 Nausea & vomiting R11.2
--- NOTE | 2025-01-01 12:30 | XACV_ITS ---
Exam Room: [facility] [place] Ht: 180 cm Wt: 88 kg BSA: 2.12 m2 Gender: Male : 1960 Any Known Allergies: Benadryl Exam Priority: Routine Procedure(s): Procedure Description: Diagnostic procedure Procedure Description: Left Heart Catheterization Procedure Description: Left ventriculography Procedure Description: Coronary Angiography Tracee CORTEZ; Diagnostic Cath Status: Elective Diagnostic Findings * Left Main has no disease. * Proximal Left Anterior Descending to Mid Left Anterior Descending: severe 90% stenosis, EMMA: 3 flow. * Distal Right Coronary Artery: significant 80% stenosis, EMMA: 3 flow. * Proximal Circumflex: obstructive 70% stenosis, EMMA: 3 flow. * Distal Circumflex: subtotal occlusion, EMMA: 3 flow. * Posterior Descending Right: obstructive 60% stenosis, EMMA: 3 flow. * Coronary angiography shows right dominance. Conclusions 1. There is subtotal occlusion coronary artery disease with three vessel disease. 2. All reed are hypokinetic. 3. Moderate left ventricular systolic dysfunction. Ejection fraction of 35%. Recommendations * 1-Return to ICU for close monitoring and routine PCI care 2-Continue IV heparin drip as per ACS protocol 3-Hold Plavix for possible CABG 4-Statin with LDL goal of 70 mg/dl, aspirin 81 mg p.o. daily for life long 5-CT surgery consults for CABG 6-Optimal medical management for NC 7-Follow up with Dr. Easely in four weeks and establish care with primary care physician. Diagnostic RX Recommendation: CABG LV EDP: 29 mmHg Ventriculography Ejection Fraction: 35.0 % Pressures Phase:Rest AO : 147 / 95 ( 118 ) @ 2:36:00 PM 129 / 87 ( 107 ) @ 2:38:00 PM 128 / 84 ( 106 ) @ 2:39:00 PM 164 / 78 ( 110 ) @ 2:48:00 PM 165 / 78 ( 111 ) @ 2:48:00 PM LV : 170 / 6 / 29 @ 2:46:00 PM 157 / 3 / 24 @ 2:48:00 PM 161 / 4 / 26 @ 2:48:00 PM Valves Phase:DefaultPhase AV : 0.0 @ 1:54:30 PM AV Mean Gradient: 0.0 @ 1:54:30 PM Clinical Evaluation EBL: 5mL-10mL Procedural Details Pre-Procedure Time Out. Identified patient by full name and date of as verbalized by the patient/guarantor. Does the consent match the physician's order: Yes. Accurate & Complete Informed Consent: Yes. Inpatient/Outpatient History & Physical on Chart: Yes. If H&P is completed, is and addenduem needed: No; If yes, is the addendum complete: N/A. Visualize and Verify Site with Patient/Guarantor: N/A. Relevant Radiology Images available: Yes. Pre-op teaching completed and patient verbalized understanding. The risks, benefits, and alternatives of sedation and/or procedure were discussed by physician. The patient agrees to continue. Procedure started. [facility] Clinical Fraility Score: 3: Managing Well. 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 Chest Pain Symptom Assessment: Typical Angina Symptoms. Correct patient, site and procedure confirmed by cath team. Current diagnosis: Chest Pain. PERRLA. 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 Lungs clear x 5 lobes. IV Site on Arrival: 18 gauge in the left anticubital. IV Fluids: 0.9% NaCl at KVO. 0 mL infused prior to laboratory inspector. Oxygen started at 2liters/min via nasal canula. right groin was prepped with chloroprep then draped in the usual sterile fashion. right radial was prepped with chloroprep then draped in the usual sterile fashion. Baseline sample Acquired. HR: 0 BPM. Current Diagnosis : Chest Pain. Physician arrived. Physician scrubbed in. Immediate Pre-Procedure Time Out. Correct Patient: Yes; Correct Procedure: Yes; Correct Site: Yes; Correct Patient Position: Yes; Correct Supplies: Yes; Dried Flammable Prep: Yes; Blood Products Available: N/A;. Lidocaine 1% infiltrated to the right radial. Arterial access obtained. A 5 azerbaijani TIG catheter in over wire. Multiple views taken of left coronary artery. Catheter redirected to the RCA. Multiple views taken of right coronary artery. Catheter removed over the exchange wire. A 5 azerbaijani Angled Pig catheter in over wire. EDP Sample taken: LV 170/6,29; HR: 59 BPM; SpO2: 97%. LV gram performed in HARRIS @ 10 mL/second for a total of 30 mL. EDP Sample taken: LV 157/3,24; HR: 58 BPM; SpO2: 98%. Pullback taken: LV 161/4,26; AO 164/78(110); Mean: 0mmHg, Peak to Peak: 0mmHg, SEP: 6sec/min; HR: 57 BPM; SpO2: 97%. Catheter removed over the exchange wire. A TR Band was successful obtaining hemostatsis at the Right Radial artery insertion site. Post Procedure: Pulses reassessed and unchanged. PERRLA. 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 No VTE prophylaxis required. Medication's Wasted: Lidocaine 1% = 18 mL. Medication's Wasted: Other = Fentanyl 25 mcg. Medication's Wasted: Heparin = 1000 units. Medication's Wasted: Nitro = 49.8 mcg. Total IV fluids: 30 mL. Post-op diagnosis: CAD. Complications: None. Estimated blood loss: 5mL-10mL. Responsiveness - Normal response to verbal stimuli; alert and oriented, PERRLA. Airway - Unaffected, no intervention required; spontaneous ventilation. Circulation: W/N/L, pulses unchanged. Nausea/Vomiting: No. Procedure completed. Patient transferred by bed to 1st floor. Vital chart was stopped. Access Site Site: Right Radial artery Sheath Size: 6 Fr Hemostasis Method: TR Band Hemostasis Success: Successful Procedure Medications Start: 1:21 PM Stop: 1:21 PM Medication: Versed Amount: 1 mg Route: I.V. Start: 1:21 PM Stop: 1:21 PM Medication: Fentanyl Amount: 50 mcg Route: I.V. Start: 1:33 PM Stop: 1:33 PM Medication: Fentanyl Amount: 25 mcg Route: I.V. Start: 1:33 PM Stop: 1:33 PM Medication: Nitrogylcerin Amount: 200 mcg Route: I.A. Start: 1:35 PM Stop: 1:35 PM Medication: Heparin Amount: 5000 units Start: 1:37 PM Stop: 1:37 PM Medication: Versed Amount: 1 mg Route: I.V. I, the attending physician, have reviewed and verified all procedure medications. Yes, all medications given per verbal order History/Risk Factors Hypertension: Yes Dyslipidemia: No Peripheral Arterial Disease (PAD): No Myocardial Infarction (NC): No Obesity: No Renal Disease: No Tobacco Use: Current/Recent(w/in 1 year) Prior Interventions PCI: No CABG: No Valve Surgery: No Report Signatures Finalized by Ann Easley MD on 01/01/2025 02:34 PM
--- NOTE | 2025-01-01 13:22 | W.PM.OPSUD ---
Surgery/Procedure H&P Update DATE OF PROCEDURE: January 01, 2025 DATE H&P PERFORMED: 01/01/25 H&P UPDATE INFORMATION: I have reviewed H&P completed within last 30 days, I have examined patient prior to procedure and No changes to prior documentation PREOP DIAGNOSIS: Non-STEMI PLANNED PROCEDURE: Left heart cath/PCI if indicated PATIENT REASSESSED PRIOR TO SEDATION, WITH NO CHANGE NOTED: Yes PHYSICAL EXAM: alert, oriented x 3, clear to auscultation bilaterally, regular rate & rhythm and operative site marked AIRWAY EVAL/ANESTHESIA PLAN: ASA II, Risks, benefits & alternatives of sedation and/or procedure discussed and Patient agrees to continue as planned ADDITIONAL INFORMATION: Patient has been explained all risk-benefit and alternative for the procedure. Patient understand 2% risk of stroke major bleed, patient understand 5% risk of hematoma pseudoaneurysm contrast induced nephropathy urgent emergent bypass surgery transfusion he agrees to it and would like to proceed with it.
--- NOTE | 2025-01-01 14:15 | PC.NURSE ---
Patient received from labor utilization superintendent via wheelchair s/p [facility] with right radial access and tr band in place. Site is free from bleeding or hematoma formation. Patient is very upset angry with the outcome as he is a CABG consult. Instructed patient on site care with restrictions. Sling provided per patient request. Will continue to monitor.
--- NOTE | 2025-01-01 14:45 | PC.NURSE ---
Patient is very upset. BP is elevated. Patient just wants a smoke to calm down. Informed KEYONNA Burgess manager and Dr Easley that patient will be escorted outside.
--- NOTE | 2025-01-01 18:45 | PM.PN ---
Subjective Subjective: Patient underwent left heart catheterization noted to have multivessel disease including mid bifurcating LAD, ostial circumflex and distal high-grade groove circumflex along with mid significant 70 to 80% RCA. Ejection fraction was moderately reduced 35 to 40%. Left ventricular end-diastolic pressure was elevated. Vitals/I&O/Wt Last Vital Signs Temp 98.0 F 01/01/25 16:00 Pulse 84 01/01/25 16:00 Resp 19 H 01/01/25 16:00 BP 156/109 01/01/25 16:00 Pulse Ox 94 01/01/25 16:00 O2 Del Method Room Air 01/01/25 16:00 01/01/25 01/01/25 01/01/25 06:59 14:59 22:59 Intake Total 0 / 0 0 / 0 480 / 480 Balance 0 / 0 0 / 0 480 / 480 Weight last 48 hrs Weight 195 lb 12.8 oz Weight 198 lb 8 oz Weight 175 lb Physical Exam Const: OTHER: GENERAL: Patient is alert, awake and oriented x3. HEART: Regular S1 and S2. No murmur, rub or gallop. LUNGS: Clear to auscultate bilaterally. CENTRAL NERVOUS SYSTEM: Grossly nonfocal. EXTREMITIES: Lower extremities with out edema bilaterally. Data 12/31/24 20:18 01/01/25 02:12 A&P Assessment and plan (1) NSTEMI (non-ST elevated myocardial infarction): (2) Hypertensive urgency: (3) CHF (congestive heart failure), NYHA class III: (4) LV dysfunction: Plan As defined above patient has multivessel coronary artery disease he will be benefited with coronary artery bypass surgery. Patient requested to transfer to [facility], [place], [place] to service of Dr. Johan De Jesus CT surgeon. I have personally spoken to Dr. De Jesus who has accepted patient's admission, awaiting bed Continue aspirin statin beta-ama Add ALICE inhibitor Adding IV Lasix to reduce left ventricular end-diastolic pressure Continue Lovenox 1 mg/kg twice daily Once room will be available patient will be transferred through road ambulance to [facility] Please print out my progress and consultation, please send CD, report of cath and report of echocardiogram with CD for patient with transfer papers PDMP PDMP Reviewed: Not Reviewed Attestations Medical Necessity Statement*: Patient require continuation hospitalization for above defined care Coding Level of Care Code Acute Code for Chg Fwd Diagnoses NSTEMI (non-ST elevated myocardial infarction) I21.4 Hypertensive urgency I16.0 CHF (congestive heart failure), NYHA class III I50.9 LV dysfunction I51.9
[2025-01-01] MEDS: isosorbide mononitrate ER 30 mg Tablet PO (20:21)
[2025-01-01] MEDS: atorvastatin 40 mg Tablet PO (20:22)
[2025-01-01] MEDS: potassium chloride ER 20 mEq Tablet PO (20:22)
[2025-01-01] MEDS: FUROsemide 10 mg/mL SDV 4mL 40 MG IVP (20:23)
[2025-01-01] MEDS: enoxaparin 80 mg/0.8 mL Syringe SUBCUT (21:37)
[2025-01-02 01:32] VITALS: BP 135/76; PULSE 68; RESP 18; TEMP 36.6; O2SAT 93
== END 2025-01-01 23:00 | disposition home or self-care (01) ==
LOC: ER 20:57 → ER IP 21:05 → CSU 21:17
PROVIDERS: Internal Medicine Cardiovascular Disease; Admitting Provider Internal Medicine; Emergency Provider Emergency Medicine; Visit Provider Internal Medicine
DX: I21.4 Non-ST elevation (NSTEMI) myocardial infarction (principal); I25.10 Atherosclerotic heart disease of native coronary artery without angina pectoris; I11.0 Hypertensive heart disease with heart failure; I50.9 Heart failure, unspecified; R79.89 Other specified abnormal findings of blood chemistry; I16.0 Hypertensive urgency; R94.31 Abnormal electrocardiogram [ECG] [EKG]; R11.2 Nausea with vomiting, unspecified; F12.90 Cannabis use, unspecified, uncomplicated; Z79.82 Long term (current) use of aspirin; F17.220 Nicotine dependence, chewing tobacco, uncomplicated; E78.5 Hyperlipidemia, unspecified; R73.03 Prediabetes
CPT/HCPCS: 36415; 71045; 80053; 80061; 81001; 83036; 83880; 84484; 85025; 93005; 93306; 93458; 96372; 96374; 96376; 99152; 99153; 99285; C1769; C1887; C1894; G0378; J1644; J1650; J1940; J2250; J3010; J3490; J7030; J9999; Q9967

== ENCOUNTER 2025-01-25 17:15 | Emergency (ER) | payer MEDICARE, SELFPAY ==
[2025-01-25 17:17] VITALS: BP 126/68; PULSE 80; TEMP 36.7; O2SAT 93
--- NOTE | 2025-01-25 17:24 | ECG_ITS ---
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 Measurements Intervals [place] Rate: 80 P: 97 MA: 184 QRS: 3 QRSD: 95 T: 129 QT: 378 QTc: 439 Interpretive Statements SINUS RHYTHM LEFT VENTRICULAR HYPERTROPHY AND ST-T CHANGE [VOLTAGE CRITERIA PLUS ST/T ABNORMALITY] POSSIBLE ANTERIOR MYOCARDIAL INFARCTION , OF INDETERMINATE AGE [30 ms Q WAVE IN V3/V4, OR R < 0.2 mV IN V4] INFERIOR MYOCARDIAL INFARCTION , OF INDETERMINATE AGE [40+ ms Q WAVE AND/OR ST/T ABNORMALITY IN II/aVF] INTERPRETATION BASED ON A DEFAULT AGE OF 40 YEARS Compared to ECG 01/01/2025 03:52:24 Left ventricular hypertrophy now present.ST (T wave) deviation now present Myocardial infarct finding now present. T-wave abnormality no longer present Possible ischemia no longer present Electronically Signed On 01-26-2025 06:21:23 CDT by Juarez Rivas M.D. [id number]
--- NOTE | 2025-01-25 17:26 | XRR_ITS ---
PROCEDURE INFORMATION: Exam: XR Chest Exam date and time: 01/25/2025 5:33 PM Age: 64 years old Clinical indication: Pain; Chest pressure; Prior surgery; Surgery date: <1 month; Surgery type: Cabg; Additional info: Cp TECHNIQUE: Imaging protocol: Radiologic exam of the chest. Views: 1 view. COMPARISON: CR (CHEST, ) 12/31/2024 7:53 PM FINDINGS: Lungs: Interval development of left basilar opacities. Atelectasis or infiltrates. Pleural spaces: Unremarkable. No pleural effusion. No pneumothorax. Heart/Mediastinum: Mild cardiomegaly. Bones/joints: Median sternotomy wires. XR/XR chest 1V portable [id number] IMPRESSION: As above.
[2025-01-25 17:51] LABS: Basophils % 0.5 %; Eosinophils # 0.1 10^3/uL (0.0-0.8); Eosinophils % 1.2 %; Hematocrit 31.8 % (37-53); Lymphocytes % 12.4 %; Mean Corpuscular HGB Conc 32.4 g/dL (30-55); Mean Corpuscular Hemoglobin 30.6 pg (27-33); Mean Corpuscular Volume 94.4 fl (82-101); Mean Platelet Volume 8.2 fL (7.4-10.4); Monocytes % 11.4 %; Neutrophils # 6.23 10^3/uL (1.8-7.7); Neutrophils % 74.1 %; Nucleated Red Blood Cells % 0 %; Platelet Count 345 10^3/cmm (157-399); Red Blood Count 3.37 10^6/uL (3.85-5.65); Red Cell Distribution Width 13.1 % (12.1-15.1)
[2025-01-25 18:06] LABS: INR 1.04 (0.8-1.2)
[2025-01-25 18:12] VITALS: BP 146/72; PULSE 80; RESP 18; O2SAT 93
[2025-01-25 18:13] LABS: Troponin(5th) Baseline 30 ng/L (0-15)
[2025-01-25 18:14] LABS: Alanine Aminotransferase 47 U/L (0-41); Albumin Level 3.6 g/dL (3.5-5.2); Alkaline Phosphatase 86 U/L (40-130); Aspartate Amino Transferase 38 U/L (0-40); Blood Urea Nitrogen 17 mg/dL (8-23); Calcium 8.7 mg/dL (8.5-10.5); Carbon Dioxide 25 mmol/L (22-29); Chloride 98 mmol/L (98-107); Creatinine Clr Calc Pharmacy 101.1667; Globulin 2.6 g/dL (1.3-4.6); Glomerular Filtration Rate 134.8 mL/min (90-130); Glucose 173 mg/dL (65-115); Lipase 25 U/L (13-60); Osmolality Calculated 288 mOsm/kg (285-295); Sodium 136 mmol/L (136-145); Total Bilirubin 0.2 mg/dL (0.15-1.2); Total Protein 6.2 g/dL (6.6-8.7)
--- NOTE | 2025-01-25 18:14 | ED_ITS ---
HPI - Chest Pain 2 General: Chief Complaint: Chest Pain Stated Complaint: sob, chest pains, 2 weeks post heart surgery Time Seen by Provider: 01/25/25 17:59 Source: patient Mode of arrival: ambulatory Limitations: no limitations History of Present Illness: 64-year-old male who had open heart surg lewis 2 weeks ago. He states over the last 2 days he has developed a cough he states the cough has been causing some sharp pains in his chest he is also been having some shortness of breath. He denies any fever he denies any vomiting or diarrhea. Associated symptoms: Reports dyspnea; Deny abdominal pain, fever(s), nausea or vomiting Related Data Previous Rx's ?Medication ?Instructions ?Recorded doxycycline hyclate 100 mg tablet 100 mg PO BID 7 days #14 tabs 01/25/25 Allergies Allergy/AdvReac Type Severity Reaction Status Date / Time diphenhydramine (From Allergy ADR-Agitate Verified 01/25/25 17:30 Benadryl Allergy) d Review of Systems 2 Const: Denies: fever(s), chills, body aches or change in appetite ENMT: Denies: throat pain or dental pain Card: Reports: chest pain Resp: Reports: dyspnea and productive cough GI: Denies: abdominal pain, nausea, vomiting or diarrhea Musc: Denies: neck pain or back pain Skin/Breast: Denies: rash Neuro: Denies: headache(s) PFSH ED 2 PFSH: Medical History Tobacco use disorder Surgical History History of hernia repair Social History Smoking and tobacco/nicotine status: current every day tobacco/nicotine user Substance/Drug Use: current Substance/Drug use frequency: daily Physical Exam 2 Const: COMMON NORMALS: no acute distress, patient oriented x3 and healthy appearing HENMT: COMMON NORMALS: normocephalic and atraumatic HEAD & SCALP: n ormocephalic and atraumatic Neck/C-Spine: COMMON NORMALS: full ROM and supple Chest: COMMONS NORMALS: normal inspection of the chest Resp: COMMON NORMALS: normal respiratory effort, No retractions and No use of accessory muscles Cardio: COMMON NORMALS: regular rate, regular rhythm and No murmurs present (Cardio) RATE: regular rate RHYTHM: regular rhythm GI: COMMON NORMALS: Normal to inspection, nondistended, normoactive bowel sounds present, Soft to palpation, non-tender and no masses PALPATION: Yes Soft to palpation Extremity: COMMON NORMALS: normal to inspection and full ROM Neuro: COMMON NORMALS: patient oriented x3, moves all extremities and no focal motor deficits Psych: COMMON NORMALS: mental status grossly normal, Normal thought process present and cooperative THOUGHT PROCESS: Normal thought process present Skin: COMMON NORMALS: no rashes or lesions noted and no wounds GENERAL SKIN EXAM: no rashes or lesions noted Course 2 Vital Signs: Vital signs: Vital Signs Temperature 98.0 F 01/25/25 17:17 Pulse Rate 71 01/25/25 20:04 Respiratory Rate 16 01/25/25 20:04 Blood Pressure 123/65 01/25/25 20:04 Pulse Oximetry 94 01/25/25 20:04 Oxygen Delivery Me thod Room Air 01/25/25 20:04 MDM - Chest Pain Medical Decision Making Patient presents here with cough along with dyspnea and is found to have a likely pneumonia I did offer him admission but he states he wants to try outpatient treatment first we will start him on doxycycline he is to return to the ER if worsening he understands agrees to plan. Medical Records I reviewed the patient's medical records. Lab Data I reviewed the patient's lab results. 01/25/25 17:41 01/25/25 17:41 Radiology Impressions Chest X-Ray 01/25/25 17:26 IMPRESSION: As above. Laboratory Results WBC 8.40 10^3/uL (3.29-11.43) 01/25/25 17:41 RBC 3.37 10^6/uL (3.85-5.65) L 01/25/25 17:41 Hgb 10.30 g/dL (11.27-16.99) L 01/25/25 17:41 Hct 31.8 % (37-53) L 01/25/25 17:41 MCV 94.4 fl (82-101) 01/25/25 17:41 MCH 30.6 pg (27-33) 01/25/25 17:41 MCHC 32.4 g/dL (30-55) 01/25/25 17:41 RDW 13.1 % (12.1-15.1) 01/25/25 17:41 Plt Count 345 10^3/cmm (157-399) 01/25/25 17:41 MPV 8.2 fL (7.4-10.4) 01/25/25 17:41 Neut % (Auto) 74.1 % 01/25/25 17:41 Lymph % (Auto) 12.4 % 01/25/25 17:41 [place] % (Auto) 11.4 % 01/25/25 17:41 Eos % (Auto) 1.2 % 01/25/25 17:41 Baso % (Auto) 0.5 % 01/25/25 17:41 Neut # (Auto) 6.23 10^3/uL (1.8-7.7) 01/25/25 17:41 Lymph # (Auto) 1.0 10^3/uL (0.8-4.8) 01/25/25 17:41 [place] # (Auto) 1.0 10^3/uL (0.2-0.9) H 01/25/25 17:41 Eos # (Auto) 0.1 10^3/uL (0.0-0.8) 01/25/25 17:41 Baso # (Auto) 0.0 10^3/uL (0.0-0.1) 01/25/25 17:41 Nucleated RBC % (auto) 0 % 01/25/25 17:41 Nucleated RBCs # 0.0 /100WBC 01/25/25 17:41 PT 14.40 SECONDS (12.1-14.9) 01/25/25 17:41 INR 1.04 (0.8-1.2) 01/25/25 17:41 Sodium 136 mmol/L (136-145) 01/25/25 17:41 Potassium 4.0 mmol/L (3.5-5.1) 01/25/25 17:41 Chloride 98 mmol/L (98-107) 01/25/25 17:41 Carbon Dioxide 25 mmol/L (22-29) 01/25/25 17:41 Anion Gap 17.0 (5-19) 01/25/25 17:41 BUN 17 mg/dL (8-23) 01/25/25 17:41 Creatinine 0.6 mg/dL (0.7-1.2) L 01/25/25 17:41 GFR Calculation 134.8 mL/min (90-130) H 01/25/25 17:41 Glucose 173 mg/dL (65-115) H 01/25/25 17:41 Calculated Osmolality 288 mOsm/kg (285-295) 01/25/25 17:41 Calcium 8.7 mg/dL (8.5-10.5) 01/25/25 17:41 Total Bilirubin 0.2 mg/dL (0.15-1.2) 01/25/25 17:41 AST 38 U/L (0-40) 01/25/25 17:41 ALT 47 U/L (0-41) H 01/25/25 17:41 Alkaline Phosphatase 86 U/L (40-130) 01/25/25 17:41 Troponin T Baseline 30 ng/L (0-15) H 01/25/25 17:41 Troponin T 120 Minute 26.24 ng/L (0-15) H 01/25/25 19:32 Delta Troponin T -3.76 ABS# (0-10) L 01/25/25 19:32 Total Protein 6.2 g/dL (6.6-8.7) L 01/25/25 17:41 Albumin 3.6 g/dL (3.5-5.2) 01/25/25 17:41 Globulin 2.6 g/dL (1.3-4.6) 01/25/25 17:41 Lipase 25 U/L (13-60) 01/25/25 17:41 All radiology interpretation(s) finalized by discharge Discharge Plan Discharge Patient Disposition: Home Clinical Impression: Pneumonia Condition: Stable Prescriptions: New doxycycline hyclate 100 mg tablet 100 mg PO BID 7 Days Qty: 14 0RF Discharge Orders: Discharge ED (Routine); Ordered 01/25/25 Ordered By: Anna Denney Discharge Diet: Advance as tolerated Discharge Activity: Resume usual activity Patient Instructions: Pneumonia (ED) Print Language: Wolof Coding Level of Care Code ED Child Abuse Worker for Andrew Loomis
[2025-01-25 18:47] VITALS: BP 139/71; PULSE 73; RESP 23; O2SAT 92
[2025-01-25 19:58] LABS: Troponin 5 2HR 26.24 ng/L (0-15)
[2025-01-25 19:59] LABS: Troponin 5 2HR Delta -3.76 ABS# (0-10)
[2025-01-25 20:04] VITALS: BP 123/65; PULSE 71; RESP 16; O2SAT 94
[2025-01-25] MEDS: doxycycline 100 mg Tablet PO (20:30)
[2025-01-25 20:36] VITALS: BP 124/76; PULSE 69; O2SAT 94
== END 2025-01-25 20:54 | disposition home or self-care (01) ==
PROVIDERS: Emergency Provider Emergency Medicine
DX: J18.9 Pneumonia, unspecified organism (principal); Z72.0 Tobacco use; Z95.1 Presence of aortocoronary bypass graft
CPT/HCPCS: 36415; 71045; 80053; 83690; 84484; 85025; 85610; 93005; 99285; J9999

== ENCOUNTER 2025-02-15 12:35 | Outpatient (CLI) | payer MEDICARE, SELFPAY ==
--- NOTE | 2025-02-15 12:52 | XRR_ITS ---
PROCEDURE INFORMATION: Exam: XR Chest Exam date and time: 02/15/2025 1:07 PM Age: 64 years old Clinical indication: Shortness of breath; Prior surgery; Surgery date: <1 month; Trouble breathing since open heart surgery; Additional info: Cad, multiple vessel TECHNIQUE: Imaging protocol: Radiologic exam of the chest. Views: 2 views. COMPARISON: CR (CHEST, ) 01/25/2025 5:33 PM FINDINGS: Lungs: There is improved aeration of the left lung base. There may be minimal ground-glass opacity or atelectasis in the left midlung with partial obscuration of the left heart border. Pleural spaces: Unremarkable. No pleural effusion. No pneumothorax. Heart/Mediastinum: See Lungs finding. Bones/joints: Status post median sternotomy and CABG. Gastrointestinal tract: Prominent bowel-gas in the upper abdomen may represent mild small bowel dilatation. XR/XR chest 2V* [id number] IMPRESSION: 1. Mild ground-glass opacity or atelectasis in the left lung. 2. Suggestion of mild small bowel dilatation in the visualized upper abdomen. Please correlate clinically.
== END 2025-02-15 12:36 | disposition home or self-care (01) ==
PROVIDERS: Visit Provider Thoracic Surgery (Cardiothoracic Vascular Surgery)
DX: I25.10 Atherosclerotic heart disease of native coronary artery without angina pectoris (principal); R91.8 Other nonspecific abnormal finding of lung field; R93.5 Abnormal findings on diagnostic imaging of other abdominal regions, including retroperitoneum; Z98.890 Other specified postprocedural states
CPT/HCPCS: 71046

== ENCOUNTER → 2025-05-06 12:22 | Outpatient (BNVA) | payer MEDICARE, SELFPAY | PROVIDERS: Referring Provider Family Medicine; Visit Provider Internal Medicine Cardiovascular Disease | DX: I25.10 Atherosclerotic heart disease of native coronary artery without angina pectoris (principal); I10 Essential (primary) hypertension; I47.10 Supraventricular tachycardia, unspecified; R94.31 Abnormal electrocardiogram [ECG] [EKG]; Z79.82 Long term (current) use of aspirin; Z95.1 Presence of aortocoronary bypass graft; Z87.891 Personal history of nicotine dependence | CPT/HCPCS: 99204; 99213 ==

== ENCOUNTER 2025-05-10 06:30 | Outpatient (RCR) | payer MEDICARE, SELFPAY | END 2025-06-08 23:59 | disposition home or self-care (01) | LOC: APT 06:30 | PROVIDERS: Visit Provider Family Medicine | DX: M54.50 Low back pain, unspecified (principal) | CPT/HCPCS: 97110; 97162 ==

== ENCOUNTER 2025-07-07 12:25 | Outpatient (RCR) | payer MEDICARE, SELFPAY | END 2025-07-08 13:09 | disposition home or self-care (01) | LOC: APT 12:25 | PROVIDERS: Visit Provider Family Medicine | DX: M54.42 Lumbago with sciatica, left side (principal) | CPT/HCPCS: 97110; 97112; 97530 ==

== ENCOUNTER → 2025-08-12 12:14 | Outpatient (BNVA) | payer MEDICARE, SELFPAY | PROVIDERS: PCP Family Medicine; Visit Provider Internal Medicine Cardiovascular Disease | DX: I11.0 Hypertensive heart disease with heart failure (principal); I50.9 Heart failure, unspecified; I25.10 Atherosclerotic heart disease of native coronary artery without angina pectoris; Z95.1 Presence of aortocoronary bypass graft; Z87.891 Personal history of nicotine dependence | CPT/HCPCS: 99214 ==

== ENCOUNTER 2025-09-03 10:04 | Outpatient (CLI) | payer MEDICARE, SELFPAY ==
--- NOTE | 2025-09-03 10:00 | USCV_ITS ---
Tanmay Bishop Age: 64 Gender: M : 1960 Exam Date: 09/03/2025 11:10 Ordering Phys: Ann Easley MD ([email or web address]) Technologist: [email or web address] Exam Location: [facility] – [place] Indication: sob, chf BP: 132 / 88 HR: 63 Rhythm: Sinus Technical Quality: Adequate MEASUREMENTS (Male / Female) Normal Values 2D ECHO LV Diastolic Diameter PLAX 5.4 cm 4.2 - 5.9 / 3.9 - 5.3 cm IVS Diastolic Thickness 0.9 cm 0.6 - 1.0 / 0.6 - 0.9 cm IVS Systolic Thickness 1.1 cm LVPW Diastolic Thickness 0.9 cm 0.6 - 1.0 / 0.6 - 0.9 cm LVPW Systolic Thickness 1.7 cm LVOT Diameter 2.0 cm LV Ejection Fraction 2D Teich 40.8 % LV Ejection Fraction MOD 4C 44.8 % LV Ejection Fraction MOD 2C 37.7 % LV Ejection Fraction 2C AL 37.3 % LA Diameter 3.8 cm RA Systolic Volume 4C AL 57.8 ml RA Systolic Volume 4C MOD 55.0 ml LA Sys Volume AL 66.1 cm cubed LA Sys Volume Index AL 30.8 cm cubed/m squared Aorta at Sinotubular Diameter 2.3 cm IVC Diameter 1.6 cm M-MODE LA Ao Ratio MM 1.3 AV Cusp Separation MM 2.0 cm DOPPLER AV Peak Velocity 119.7 cm/s LVOT Peak Velocity 69.0 cm/s AV Area Cont Eq vti 2.0 cm squared AV Area Cont Eq pk 1.8 cm squared MV Peak Velocity 80.0 cm/s MV Area PHT 4.1 cm squared Mitral E to A Ratio 0.9 TR Peak Velocity 106.0 cm/s TR Peak Gradient 4.5 mmHg TR Mean Velocity 73.0 cm/s TR Mean Gradient 2.5 mmHg TR Velocity Time Integral 16.3 cm PV Peak Velocity 85.0 cm/s RV Ejection Time 0.3 s FINDINGS Left Ventricle Normal left ventricular cavity size. Moderately decreased left ventricular systolic function. Left ventricular ejection fraction is estimated at 45 %. There is mid to distal anterior wall and apical wall hypokinesis.Grade I/IV diastolic dysfunction (abnormal relaxation filling pattern), normal to mildly elevated filling pressures. Right Ventricle Normal right ventricular size and systolic function. Right Atrium Normal right atrial size. Left Atrium Normal left atrial size. IA Septum Normal appearance of the interatrial septum. Mitral Valve Moderately thickened mitral valve. No mitral valve stenosis. Trace mitral valve regurgitation. Aortic Valve Moderate aortic valve calcification. No aortic valve stenosis. Trace aortic valve regurgitation. Tricuspid Valve Normal tricuspid valve structure. No tricuspid valve stenosis or regurgitation. Normal pulmonary pressure. Pulmonic Valve Normal pulmonic valve structure. No pulmonic valve stenosis or regurgitation. Pericardium No pericardial effusion. Aorta Normal diameter of the aortic root and ascending thoracic aorta. IVC Normal IVC diameter. CONCLUSIONS Normal left ventricular cavity size. Moderately decreased left ventricular systolic function. Left ventricular ejection fraction is estimated at 45 %. There is mid to distal anterior wall and apical wall hypokinesis.Grade I/IV diastolic dysfunction (abnormal relaxation filling pattern), normal to mildly elevated filling pressures. Moderate aortic valve calcification. No aortic valve stenosis. Trace aortic valve regurgitation. Moderately thickened mitral valve. No mitral valve stenosis. Trace mitral valve regurgitation. There is no pericardial effusion. Right atrial pressure is around 5 mm of mercury. Ann Easley MD (Electronically Signed) Final Date: 11 September 2025 16:13 S
== END 2025-09-03 10:05 | disposition home or self-care (01) ==
LOC: RAD 10:05
PROVIDERS: PCP Family Medicine; Visit Provider Internal Medicine Cardiovascular Disease
DX: I50.9 Heart failure, unspecified (principal); R06.02 Shortness of breath; R93.1 Abnormal findings on diagnostic imaging of heart and coronary circulation; I51.89 Other ill-defined heart diseases; I05.9 Rheumatic mitral valve disease, unspecified; I35.8 Other nonrheumatic aortic valve disorders
CPT/HCPCS: 93306